=== PATIENT | male | born 1965 | race Caucasian/White ===

== ENCOUNTER 2019-09-30 06:19 | Emergency (ER) | payer OTHER ==
[2019-09-30] MEDS ORDERED: HYDROcodone/ACETAMIN 5-325 MG* 1 TAB PO ONE (06:54)
[2019-09-30] MEDS ORDERED: Penicillin VK TAB* 250 MG PO ONE (07:03)
--- NOTE | 2019-09-30 07:10 | ED ---
Throat Pain/Nasal Congestion - HPI Summary HPI Summary: This patient is a 54-year-old male presenting to the ED with left lower dental pain is approximately 3-4 days. He states a filling had broken off and he believes part of the tooth was attached. He denies any fevers, sweats, chills. He rates his pain a 10/10, constant and throbbing. Symptoms are not worse or better with medication [id number]. He states he has had this feeling redone 3 times in the past. He was able to call his dentist and believes he is able to get in tomorrow. He denies any swelling to the area. Denies any dysphagia or odynophagia. Continues to eat soft foods. - History of Current Complaint Chief Complaint: EDDentalPain Time Seen by Provider: 09/30/19 06:29 Hx Obtained From: Patient Onset/Duration: Sudden Onset Severity: Severe Associated Signs And Symptoms: Negative: Dysphagia - Epiglottits Risk Factors Epiglottis Risk Factors: Negative - Allergies/Home Medications Allergies/Adverse Reactions: Allergies Allergy/AdvReac Type Severity Reaction Status Date / Time niacin Allergy Flushing Verified 09/30/19 06:23 Home Medications: Home Medications Naproxen Sodium [Naproxen 220 mg] 440 mg PO Q8H PRN 09/30/19 [History Confirmed 09/30/19] PMH/Surg Hx/FS Hx/Imm Hx Previously Healthy: Yes - Immunization History Hx Pertussis Vaccination: No Immunizations Up to Date: Yes Infectious Disease History: No Infectious Disease History: Denies: Traveled Outside the [place] in Last 30 Days - Social History Occupation: Employed Full-time Lives: With Family Alcohol Use: Rare Hx Substance Use: No Substance Use Type: Reports: None Hx Tobacco Use: No Smoking Status (MU): Former Smoker Review of Systems Negative: Fever, Chills, Fatigue, Skin Diaphoresis Positive: Dental Pain Negative: Palpitations, Chest Pain Negative: Shortness Of Breath, Cough Genitourinary: Negative Positive: no symptoms reported, see HPI Negative: Myalgia Neurological: Negative All Other Systems Reviewed And Are Negative: Yes Physical Exam Triage Information Reviewed: Yes Vital Signs On Initial Exam: Initial Vitals Temp Pulse Resp BP Pulse Ox 97.3 F 65 18 195/120 96 09/30/19 06:21 09/30/19 06:21 09/30/19 06:21 09/30/19 06:21 09/30/19 06:21 Vital Signs Reviewed: Yes Appearance: Positive: Well-Appearing, Well-Nourished Skin: Positive: Warm, Skin Color Reflects Adequate Perfusion Head/Face: Positive: Normal Head/Face Inspection Eyes: Positive: EOMI, S[place], Conjunctiva Clear Dental: Positive: Dental Fracture @ - tooth #20 Neck: Positive: Supple Respiratory/Lung Sounds: Positive: Breath Sounds Present Cardiovascular: Positive: Normal Musculoskeletal: Positive: Normal, Strength/ROM Intact Neurological: Positive: Speech Normal Psychiatric: Positive: Affect/Mood Appropriate AVPU Assessment: Alert Procedures - Sedation Patient Received Moderate/Deep Sedation with Procedure: No Diagnostics - Vital Signs Vital Signs Temp Pulse Resp BP Pulse Ox 09/30/19 06:21 97.3 F 65 18 195/120 96 - Laboratory Lab Statement: Any lab studies that have been ordered have been reviewed, and results considered in the medical decision making process. EENT Course/Dx - Course Course Of Treatment: No dental abscess or lesions seen over area of concern. Erythema at the site of pain. No drainage from area. Tooth #20 with obvious filling broken. Pain on palpation over mandible to this area. No TMJ tenderness. No pain with opening and closing mouth. Pt has good outpatient care /followup. Will treat for possible dental infection based on symptoms of pain and radiation to jaw and ear. No allergies. Will treat with Penicillin and will give pain control. Patient to follow up immediately with dentist. - Differential Diagnoses Differential Diagnoses: Other - dental pain, infection - Diagnoses Provider Diagnoses: Fracture of dental implant Discharge ED - Sign-Out/Discharge Documenting (check all that apply): Patient Departure - Discharge Plan Condition: Stable Disposition: HOME Prescriptions: Hydrocodone/Acetamin 10/325(NF [[place] 10/325 (NF)] 1 tab PO Q6H #8 tab MDD 4 Penicillin VK 500 MG TAB(NF) [Penicillin VK 500 mg Tab(NF)] 500 mg PO TID #15 tab MDD 3 Patient Education Materials: Toothache (ED) Referrals: Carrington SERNA,Pro Jerry [Primary Care Provider] - Additional Instructions: Discharge: You have been diagnosed with dental pain with possible infection due to your broken filling Antibiotics as prescribed to you. Penicillin three times daily for 5 days To minimize the potential for gastrointestinal intolerance, Penicillin should be taken at the start of a meal. If you have any questions about your medication, please contact us or ask your pharmacist. Salt water rinses several times per day will improve healing time. Ibuprofen 600mg three times daily with meals for discomfort. Hydrocodone four times daily as needed for pain Do not take tylenol while taking this medication Use these medications intermittently Over the counter ambesol and orajel may help Follow up with a dentist for routine care to prevent recurrence of infections as soon as possible If fever, worsening pain or swelling develops, see your PCP, dentist or come back to the Emergency Department. - Billing Disposition and Condition Condition: STABLE Disposition: Home
[2019-09-30 07:18] VITALS: BP 166/105
== END 2019-09-30 07:17 | disposition home or self-care (01) ==
LOC: ED 06:19
DX: K08.531 Fractured dental restorative material with loss of material (principal); K08.89 Other specified disorders of teeth and supporting structures; Z79.899 Other long term (current) drug therapy; Z87.891 Personal history of nicotine dependence
CPT/HCPCS: 99282; A9270-GY